=== PATIENT | male | born 1935 | race Caucasian/White ===

== ENCOUNTER → 2017-03-02 | Outpatient (REF) | payer MEDICARE ==
[2017-03-02 17:25] LABS: PERCENT SATURATION 48.3 % (19.7-37.4)
== END ==
LOC: M LAB REF 16:38
PROVIDERS: ATTEND Internal Medicine Medical Oncology
DX: D46.9 Myelodysplastic syndrome, unspecified (principal)

== ENCOUNTER → 2017-03-07 | Outpatient (REF) | payer MEDICARE ==
[~2017-03-07] MED LIST: ALBU17IN2 INH; LISI-542 PO; OMEP40CA2 PO; SIMV40TA2 PO
[2017-03-07 14:41] LABS: INR 1.05
== END ==
LOC: M LAB REF 14:20
PROVIDERS: ATTEND Internal Medicine Medical Oncology
DX: D46.9 Myelodysplastic syndrome, unspecified (principal)

== ENCOUNTER → 2017-03-15 | Outpatient (REF) | payer MEDICARE ==
[2017-03-15 13:25] LABS: INR 0.99
== END ==
LOC: M LAB REF 12:22
PROVIDERS: ATTEND Internal Medicine Medical Oncology
DX: D46.9 Myelodysplastic syndrome, unspecified (principal)

== ENCOUNTER → 2017-03-21 | Outpatient (REF) | payer MEDICARE ==
[2017-03-21 14:28] LABS: INR 1.02
== END ==
LOC: M LAB REF 13:29
PROVIDERS: ATTEND Internal Medicine Medical Oncology
DX: D46.9 Myelodysplastic syndrome, unspecified (principal)

== ENCOUNTER 2017-04-03 13:10 | Emergency (ER) | payer MEDICARE ==
[~2017-04-03] VITALS: Ht 165.1 cm; Wt 82.2 kg
[2017-04-03] MEDS ORDERED: LISI-542 PO (14:04)
[2017-04-03] MEDS ORDERED: OMEP40CA2 PO (14:04)
[2017-04-03] MEDS ORDERED: ALBU17IN2 INH (14:04)
[2017-04-03] MEDS ORDERED: SIMV40TA2 PO (14:04)
[2017-04-03 15:15] LABS: ADD MANUAL DIFFER YES; DIFF SLIDE NUMBER 280; MEAN CORPUSCULAR HEMOGLOBIN 29.2 pg (27.0-33.0); MEAN CORPUSCULAR HGB CONC 31.2 g/dl (32.0-36.5); MEAN CORPUSCULAR VOLUME 93.4 fl (80.0-96.0); RED CELL DISTRIBUTION WIDTH 17.1 % (11.5-14.5); WHITE BLOOD COUNT 2.5 K/mm3 (4.0-10.0)
[2017-04-03 15:16] LABS: INR 1.02
[2017-04-03 15:30] LABS: ALBUMIN 3.8 GM/DL (3.2-5.2); ALBUMIN/GLOBULIN RATIO 1.27 (1.00-1.93); BILIRUBIN,DIRECT 0.3 MG/DL (0.0-0.2); BILIRUBIN,TOTAL 1.1 MG/DL (0.2-1.0); CALCIUM LEVEL 8.7 MG/DL (8.8-10.2); CREATININE FOR GFR 1.73 MG/DL (0.70-1.30); GLOMERULAR FILTRATION RATE 40.5 (>35); TOTAL PROTEIN 6.8 GM/DL (6.4-8.2)
[2017-04-03 15:47] LABS: PLATELET COUNT, AUTOMATED 67 k/mm3 (150-450)
[2017-04-03 15:51] LABS: EOSINOPHILS 2 % (0-5)
[2017-04-03 15:52] LABS: ANISOCYTOSIS 1+; HYPOCHROMASIA 1+
[2017-04-03 16:11] VITALS: BP 130/76
--- NOTE | 2017-04-03 16:15 | REP ---
REASON FOR EXAM: Unexplained headache. COMPARISON: None. TECHNIQUE: 4.5 mm contiguous transaxial sections were obtained from the skull base to the cerebral convexities with thin cuts through the posterior fossa without the administration of intravenous contrast. FINDINGS: The ventricles and sulci are consistent with the patient's age. There are no extra-axial fluid collections. There is no mass effect. The deep cerebral white matter is consistent with the patient's age. The orbital and petrous structures, cerebellopontine angles, and posterior fossa are unremarkable. The sella turcica, cavernous, and paracavernous structures are essentially unremarkable. The visualized portions of the paranasal sinuses and mastoid air cells are clear. Images of the skull base show no gross abnormality. IMPRESSION: Essentially unremarkable CT examination of the brain. Signed by David Horowitz DO 04/03/2017 04:31 P
== END 2017-04-03 16:23 | disposition home or self-care (01) ==
LOC: M ED 13:10
DX: R51 Headache (principal); Z79.01 Long term (current) use of anticoagulants